=== PATIENT | male | born 1955 | race Caucasian/White ===

== ENCOUNTER 2016-06-10 06:49 | Day surgery (SDC) | payer BC ==
[2016-06-08 15:13] VITALS: BMI 25.7
[~2016-06-10 06:49] MED LIST: LACTATED RINGERS 1,000 ML IV SCH
[2016-06-10 07:04] VITALS: TEMP 97.4
[2016-06-10] MEDS ORDERED: PROPOFOL 10 MG/ML 20 ML VIAL IV ONE (07:47)
[2016-06-10] MEDS ORDERED: MIDAZOLAM 2 MG/2 ML VIAL ONE (07:47)
--- NOTE | 2016-06-10 07:57 | P.GSHP ---
History of Present Illness H&P Date: 06/10/16 Chief Complaint: History of colonic polyps [employer] 61-year-old male who presents today for colonoscopy. Patient has history of colonic polyps. His last colonoscopy was 6 years ago. - Constitutional Constitutional: Reports as per HPI Past Medical History Past Medical History: Hypertension, Prostate Disorder Additional Past Medical History / Comment(s): hx irreg. 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 2 beers /day Past Drug Use History: Marijuana Additional Drug Use History / Comment(s): medical marijuana 1 joint/day - Past Family History Father Family Medical History: Cancer Additional Family Medical History / Comment(s): pancreatic Medications and Allergies Home Medications Medication Instructions Recorded Confirmed Type Fluticasone Nasal [place] [Flonase 1 spray EA NOSTRIL BID 06/08/16 06/10/16 History Nasal [place]] HYDROcodone/APAP 10-325MG [[place] 1 tab PO TID 06/08/16 06/10/16 History 10-325] Metoprolol Succinate (ER) [Toprol 50 mg PO DAILY 06/08/16 06/10/16 History Xl] Multivitamins, Thera [Multivitamin] 1 tab PO DAILY 06/08/16 06/10/16 History Naproxen 500 mg PO BID 06/08/16 06/10/16 History amLODIPine BESYLATE/BENAZEPRIL 1 cap PO DAILY 06/08/16 06/10/16 History [amLODIPine BESYLATE/BENAZEPRIL 10-40 mg] Allergies Allergy/AdvReac Type Severity Reaction Status Date / Time cat dander Allergy Swelling Verified 06/08/16 14:44 codeine Allergy Nausea & Verified 06/08/16 14:44 Vomiting Surgical - Exam Vital Signs Temp Pulse Resp BP Pulse Ox 97.4 F L 105 H 20 145/82 97 06/10/16 07:01 06/10/16 07:01 06/10/16 07:01 06/10/16 07:01 06/10/16 07:01 - General well developed, no distress - Eyes PERRL - ENT normal pinna - Neck no masses - Respiratory normal expansion - Cardiovascular Rhythm: regular - Abdomen Abdomen: soft, non tender Assessment and Plan Plan: History of colonic polyps. We'll perform colonoscopy.
--- NOTE | 2016-06-10 08:17 | P.OP ---
Date of Procedure: 06/10/16 Preoperative Diagnosis: History of colonic polyps Postoperative Diagnosis: Sigmoid colon polyp Diverticulosis Procedure(s) Performed: Colonoscopy Anesthesia: MAC Surgeon: Dale Krishnan Pathology: other (Colon polyp) Condition: stable Disposition: PACU Description of Procedure: The patient's placed on the endoscopy table in the lateral position. He received IV sedation. Digital rectal exam was performed which revealed no abnormalities. The prostate was symmetrical without nodules. The flexible colonoscope was then placed patient anus and passed throughout the entire colon. The ileocecal valve was visualized. The cecum, ascending and transverse colon appeared normal. In the descending; was mild diverticular changes. In the sigmoid colon there was a polyp seen with snare. Scope was then brought back the rectum and this appeared normal. The scope was withdrawn for patient.
[2016-06-10 08:19] VITALS: RESP 16
[2016-06-10 08:34] VITALS: BP 116/69; PULSE 73
== END 2016-06-10 08:43 | disposition home or self-care (01) ==
LOC: ORWHC2ENDO 06:49
PROVIDERS: ATTEND Surgery
DX: Z12.11 Encounter for screening for malignant neoplasm of colon (principal); D12.5 Benign neoplasm of sigmoid colon; K57.30 Diverticulosis of large intestine without perforation or abscess without bleeding; I10 Essential (primary) hypertension; N40.0 Benign prostatic hyperplasia without lower urinary tract symptoms; F17.200 Nicotine dependence, unspecified, uncomplicated; Z86.010 Personal history of colon polyps; Z88.5 Allergy status to narcotic agent; Z91.09 Other allergy status, other than to drugs and biological substances; Z79.891 Long term (current) use of opiate analgesic; Z79.1 Long term (current) use of non-steroidal anti-inflammatories (NSAID); Z79.899 Other long term (current) drug therapy
CPT/HCPCS: 45385; 88305; J2250; J2704